=== PATIENT | female | born 1990 | race Caucasian/White ===

== ENCOUNTER 2024-08-10 12:47 | Outpatient (CLI) | payer BC, SELFPAY ==
--- OUTSIDE RECORDS SUMMARY | 2024-08-10 12:49 | XMS_ITS | Clinical Summary ---
Author Organization [employer] [facility] & [facility] Address [place], [place] [address] Care Team Providers Care Back Facer Name Role Phone Pcp, No Primary Care Provider Unavailabl e Allergies Active Allergy Reactions Criticality Noted Date Comments Amoxicillin Other - Describe In Comment Field 01/20/2009 Vomits; chart previously said rash, patient unsure Azithromycin Hives 09/24/2013 Doxycycline Vomiting 11/02/2014 Medications escitalopram (LEXAPRO) 20 mg tablet Take 1 tablet by mouth once daily. 0 09/23/2013 Active lamoTRIgine (LAMICTAL) 200 mg tablet Take 1 tablet by mouth once daily. 0 08/24/2014 Active Active Problems No known active problems Social History Tobacco Use Types Packs/Day Years Used Date Smoking Tobacco: Never Smokeless Tobacco: Never Tobacco Cessation:Counseling Given: Yes Alcohol Use Standard Drinks/Week Comments Not Asked 0 (1 standard drink = 0.6 oz pur e alcohol) Social Connections Answer Date Recorded Frequency of Communication with Friends and Fami ly Not on file 08/22/2021 Financial Resource Strain Answer Date R ecorded Difficulty of Paying Living Expenses Not on file 08/22/2021 Difficulty of Paying Living Expenses Not on file 08/22/2021 Comments No Sex and Gender Information Value Date Recorded Sex Assigned at Not on file Legal Sex Female 7:09 AM REAL ESTATE ASSESSOR Gender Identity Not on file Sexual Orientation Not on file Obstetrics History Last Filed Vital Signs Vital Sign Reading Time Taken Comments Blood Pressure 100/56 10/25/2015 6:20 PM REAL ESTATE ASSESSOR Pulse 88 10/25/2015 6:20 PM REAL ESTATE ASSESSOR Temperature 37.2 C (99 F) 10/25/2015 6:20 PM REAL ESTATE ASSESSOR Respiratory Rate 20 10/25/2015 6:20 PM REAL ESTATE ASSESSOR Oxygen Saturation 97% 11/02/2014 1:42 PM REAL ESTATE ASSESSOR Inhaled Oxygen Concentration - - Weight 71.1 kg (156 lb 11.2 oz) 10/25/2015 6:20 PM REAL ESTATE ASSESSOR Height - - Body Mass Index - - Plan of Treatment Health Maintenance Due Date Last Done Comments Tdap 2002 Depression screening for age 12+ 2003 HIV for age 15-65 2006 BMI (ht and wt on same day) for age 18+ 2009 Hepatitis C screening for ag e 18-79 2009 Tetanus booster 2011 Pap test for age 21-65 08/14/2023 0, 12/03/2016, 09/06/2013 COVID-19 vaccine series (2023- season) 2024 Influenza for age 9-49 05/02/2024 Pneumococcal series for age 6-64 Aged Out No longer eligible b ased on patient's age to complete this topic Procedures Procedure Name Priority Date/Time Associated Diagnosis Comments FASHION DIRECTOR [employer] THIN PREP PAP SCREEN IMAGED Routine 08/14/2020 3:00 PM REAL ESTATE ASSESSOR from Last 3 Months or Most Recently Relevant to Health Maintenance Results * FASHION DIRECTOR [employer] THIN PREP PAP SCREEN IMAGED (08/14/2020 3:00 PM REAL ESTATE ASSESSOR) Case Report Gynecologic Cytology Report Case: [id number] Authorizing Provider: Myrna Colin PA-C Collected: 08/14/2020 1500 Ordering Location: [facility] Received: 08/15/2020 1712 First Screen: Elif Guzman Specimen: FASHION DIRECTOR [employer] ThinPrep Vial Screening, Cervical/Vaginal 08/29/2020 12:25 PM REAL ESTATE ASSESSOR [facility] INTERPRETATION/ RESULT NEGATIVE FOR INTRAEPITHELIAL LESION OR MALIGNANCY (NIL) (none) 08/29/2020 12:25 PM REAL ESTATE ASSESSOR [facility] IMEN ADEQUACY Satisfactory for evaluation No endocervical component seen 08/29/2020 12:25 PM REAL ESTATE ASSESSOR [facility] HPV REQUEST HPV if ASCUS 08/29/2020 12:25 PM REAL ESTATE ASSESSOR [facility] Last Pap Date 12/03/2016 08/29/2020 12:25 PM REAL ESTATE ASSESSOR [facility] Last Pap Result NIL 0 12:25 PM REAL ESTATE ASSESSOR [facility] Menstrual Status 08/29/2020 12:25 PM REAL ESTATE ASSESSOR [facility] Comment:iud Additional Information 08/29/2020 12:25 PM REAL ESTATE ASSESSOR [facility] Comment: Interpreted at [facility] - [address] [place] [place] [address], [place] [address] Automated Review Successful 08/29/2020 12:25 PM REAL ESTATE ASSESSOR [facility] Comment:Specimen processed s uccessfully by automated cylinder grinder device, ThinPrep Imaging System, [employer] Note The pap test is a screening technique, not a diagnostic procedure. It is used primarily to screen for squamous cancers and precursor lesions. Published studies have shown that it is subject to both false negative and false positive results. The pap test should not be used as the sole means to diagnose or exclude pre-malignant and malignant lesions. 08/29/2020 12:25 PM REAL ESTATE ASSESSOR [facility] Other (Cervical/Vagina l) 08/14/2020 3:00 PM REAL ESTATE ASSESSOR 08/15/2020 5:12 PM REAL ESTATE ASSESSOR november Cristi JIN PATHOLOGY/CYTOLOGY Final R esult [facility] [address] [place] [address], [place] from Last 3 Months or Most Recently Relevant to Health Maintenance Care Teams Back Facer Relationship Specialty Start Date End Date Pcp, No . PCP - General 01/19/09
[2024-08-10 21:56] LABS: Chlamydia DNA Amplified* NOT DETECTED (No Detected); GC DNA Amplified* NOT DETECTED (No Detected)
[2024-08-13 04:27] LABS: HPV Source Cervix; HPV, High Risk by TMA Not Detected
== END 2024-08-10 12:48 | disposition home or self-care (01) ==
PROVIDERS: Visit Provider Registered Nurse
DX: N93.0 Postcoital and contact bleeding (principal); N92.6 Irregular menstruation, unspecified; Z12.4 Encounter for screening for malignant neoplasm of cervix; Z13.6 Encounter for screening for cardiovascular disorders; Z11.59 Encounter for screening for other viral diseases; Z13.29 Encounter for screening for other suspected endocrine disorder; Z13.1 Encounter for screening for diabetes mellitus
CPT/HCPCS: 80061; 84443; 87491; 87591; 87624; 87625; 88141; 88142

== ENCOUNTER 2024-09-03 10:37 | Outpatient (CLI) | payer BC, SELFPAY ==
--- NOTE | 2024-09-03 10:45 | CRLHL7_ITS ---
For Patients: As a result of the Cures Act, medical imaging exams and procedure reports are released immediately into your electronic medical record. You may view this report before your referring provider. If you have questions, please contact your health care provider. DIGITAL DIAGNOSTIC LEFT MAMMOGRAM USING TOMOSYNTHESIS AND COMPUTER-AIDED DETECTION LEFT BREAST ULTRASOUND CLINICAL HISTORY: LEFT breast lump. COMPARISON: None. TECHNIQUE: Digital LEFT mammogram in two projections with computer-aided detection. Tomosynthesis was used in this interpretation. Real-time ultrasound imaging of LEFT breast with imaging documentation. BREAST COMPOSITION: The breasts are heterogeneously dense, which may obscure small masses. FINDINGS: 3D CC/MLO LEFT breast mammogram images submitted. No architectural distortion. No suspicious mass or calcifications. No adenopathy. Targeted LEFT breast ultrasound performed in the area of concern at 1 o`clock 4 cm from the nipple. Normal dense fibroglandular tissue is present. No fibrocystic change or mass. IMPRESSION: Normal fibroglandular tissue. No suspicious findings. RECOMMENDATIONS: Age-appropriate screening mammography. A lay language report of this examination will be provided to the patient. BI-RADS Category 1: Negative Dictated by Amanuel Loco MD @ 09/03/2024 11:43:36 AM jj/Dictated by: Amanuel Loco MD @ 09/03/2024 11:44:00 AM (Electronically Signed)
--- NOTE | 2024-09-03 11:15 | CRLHL7_ITS ---
For Patients: As a result of the Century Cures Act, medical imaging exams and procedure reports are released immediately into your electronic medical record. You may view this report before your referring provider. If you have questions, please contact your health care provider. SEE DIGITAL DIAGNOSTIC LEFT MAMMOGRAM PERFORMED SAME DAY CRL:cong gar/Dictated by: Amanuel Loco MD @ 09/03/2024 11:44:00 AM (Electronically Signed)
== END 2024-09-03 10:38 | disposition home or self-care (01) ==
LOC: MAMMO 10:38
PROVIDERS: Visit Provider Registered Nurse
DX: N63.20 Unspecified lump in the left breast, unspecified quadrant (principal)
CPT/HCPCS: 76642; 77065; G0279

== ENCOUNTER 2025-08-02 11:19 | Outpatient (CLI) | payer BC, SELFPAY ==
--- NOTE | 2025-08-02 11:30 | CRLHL7_ITS ---
For Patients: As a result of the Cures Act, medical imaging exams and procedure reports are released immediately into your electronic medical record. You may view this report before your referring provider. If you have questions, please contact your health care provider. OBSTETRICAL ULTRASOUND TRANSABDOMINAL CLINICAL INDICATION: Dating and viability. LMP: 05/26/2025 TAYLOR by LMP: 03/02/2026 Gestational age: 9 weeks 5 days PREVIOUS ULTRASOUND: No TECHNIQUE: Real-time khanna-scale imaging of the fetus was performed transabdominal. FINDINGS: CRL: 2.7 cm, 9 weeks 4 days; TAYLOR 03/03/2026 heart rate: 176 BPM Gestational sac: 5.0 cm, appears within normal limits Yolk sac: 3.6 mm, appears within normal limits Right ovary: 3.2 x 1.6 x 1.9 cm Left ovary: 3.2 x 1.2 x 2.0 cm IMPRESSION: Single living intrauterine measures 9 weeks 4 days with sonographic due date of 03/03/2026. AMANUEL JO M.D. Diagnostic Radiologist [email or web address] Transcribed: 1:[address]/Dictated by: Amanuel Jo MD @ 08/02/2025 12:12:00 PM (Electronically Signed)
== END 2025-08-02 11:20 | disposition home or self-care (01) ==
LOC: US 11:20
PROVIDERS: Visit Provider Registered Nurse
DX: Z34.91 Encounter for supervision of normal pregnancy, unspecified, first trimester (principal); Z3A.09 9 weeks gestation of pregnancy; N89.8 Other specified noninflammatory disorders of vagina
CPT/HCPCS: 76801; 81513; 83021; 86592; 86703; 86704; 86706; 86762; 86787; 86803; 86850; 86900; 86901; 87086; 87340; 87481; 87491; 87591; 87661

== ENCOUNTER 2025-08-02 12:25 | Outpatient (CLI) | payer BC, SELFPAY ==
[2025-08-02 15:52] LABS: Bacterial Vaginosis* Negative (Negative); Candida glab/krus NOT DETECTED (No Detected)
[2025-08-02 16:21] LABS: Chlamydia DNA Amplified* NOT DETECTED (No Detected); GC DNA Amplified* NOT DETECTED (No Detected)
== END 2025-08-02 12:26 | disposition home or self-care (01) ==
PROVIDERS: Visit Provider Registered Nurse
DX: Z34.91 Encounter for supervision of normal pregnancy, unspecified, first trimester (principal); N89.8 Other specified noninflammatory disorders of vagina; Z3A.09 9 weeks gestation of pregnancy
CPT/HCPCS: 81513; 83020; 83021; 85660; 86592; 86703; 86704; 86706; 86762; 86787; 86803; 86850; 86900; 86901; 87086; 87340; 87481; 87491; 87591; 87661